=== PATIENT | male | born 1960 | race African-American/Black ===

== ENCOUNTER 2019-09-01 19:21 | Emergency (ER) | payer MEDICARE, MEDICAID ==
--- NOTE | 2019-09-01 19:58 | RAD ---
EXAM: XR Shoulder Lt 3 View STANDARD PROVIDED CLINICAL HISTORY: Pain FINDINGS: There is no evidence for fracture. Alignment appears anatomic. Joint spaces appear preserved. Erosive changes at the acromioclavicular joint are noted. IMPRESSION: Erosive changes at the acromioclavicular joint. Correlate for infectious or inflammatory arthritis.
== END 2019-09-01 20:09 | disposition home or self-care (01) ==
LOC: BURERS 19:21
DX: M25.512 Pain in left shoulder (principal); E11.9 Type 2 diabetes mellitus without complications; Z79.899 Other long term (current) drug therapy; W18.30XA Fall on same level, unspecified, initial encounter
CPT/HCPCS: 93005